=== PATIENT | female | born 1975 | race Caucasian/White ===

== ENCOUNTER 2017-05-11 10:08 | Emergency (ER) | payer MEDICAID ==
--- NOTE | 2017-05-11 10:30 | C.PDOC ---
History Of Present Illness SORE THROAT X 5 DAYS, RUNNY NOSE X 3. SORE THROAT WORSE IN MORNING. SUBJ FEVER. 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 SAW PMD FOR SAME, NO IMPROVE W TAMIFLU AND PHENERGAN COUGH. NO OTHER ASSOC SX EXAM NONTOXIC HEENT +CLEAR RHINORRHEA; PHARYNX CLEAR, NO ERYTHEMA OR EXUDATE OR SWELLING; UVULA MIDLINE; NO STRIDOR NECK SUPPLE LUNGS CTA B/L NO W/R/R REMAIDNER NEG MDM FINDINGS C/W VIRAL URI. PT REQUESTING ABX. ADVISED H&P ARE C/W VIRAL ILLNESS. SUPPORTIVE THERAPY Time Seen by Provider: 05/11/17 10:19 Chief Complaint (Nursing): Cough, Cold, Congestion History Per: Patient History/Exam Limitations: no limitations Onset/Duration Of Symptoms: Days Current Symptoms Are (Timing): Still Present Associated Symptoms: Fever, Sore Throat, Cough Severity: Moderate Past Medical History Reviewed: Historical Data, Nursing Documentation, Vital Signs Vital Signs: Last Vital Signs Temp 97.9 F 05/11/17 10:11 Pulse 86 05/11/17 10:11 Resp 18 05/11/17 10:38 BP 124/80 05/11/17 10:11 Pulse Ox 100 05/11/17 10:54 - Medical History PMH: Atrial Fibrillation, HTN, Hyperthyroidism (Recent LAB abnormality this admission), Chronic Kidney Disease Surgical History: No Surg Hx Denies: Pacemaker - [facility] Procedures CLOSURE SKIN & SUBCUTANEOUS NEC (02/17/13) TETANUS TOXOID ADMINIST (02/17/13) Family History: States: No Known Family Hx - Social History Hx Tobacco Use: No Hx Alcohol Use: No Hx Substance Use: No - Immunization History Hx Tetanus Toxoid Vaccination: No Hx Influenza Vaccination: No Hx Pneumococcal Vaccination: Yes Review Of Systems Except As Marked, All Systems Reviewed And Found Negative. Constitutional: Positive for: Fever (subjective fever). Negative for: Chills ENT: Positive for: Nose Discharge, Throat Pain. Negative for: Nose Congestion Respiratory: Positive for: Cough (non-productive cough) Physical Exam - Physical Exam Appears: Non-toxic Skin: Normal Color, Warm Head: Atraumatic, Normacephalic Eye(s): bilateral: Normal Inspection, PERRL Nose: Discharge (clear rhinorrhea) Throat: Normal, No Erythema, No Exudate, Other (no swelling, pharynx clear, uvula midline, no stridor) Neck: Supple Respiratory: Normal Breath Sounds, No Rales, No Rhonchi, No Wheezing Extremity: Normal ROM Neurological/Psych: Oriented x3, Normal Speech, Normal Cognition, Normal Motor, Normal Sensation ED Course And Treatment O2 Sat by Pulse Oximetry: 100 (RA) Pulse Ox Interpretation: Normal Medical Decision Making Medical Decision Making: Plan: --Benzonatate 200 mg PO --Dexamethasone 12 mg PO --Ibuprofen 600 mg PO FINDINGS C/W VIRAL URI. PT REQUESTING ABX. ADVISED H&P ARE C/W VIRAL ILLNESS. SUPPORTIVE THERAPY Disposition Counseled Patient/Family Regarding: Diagnosis, Need For Followup, Rx Given - Disposition Referrals: YOUR,PMD [Other] Disposition: HOME/ ROUTINE Disposition Time: 10:31 Condition: IMPROVED Prescriptions: Benzonatate [Tessalon Perles] 200 mg PO TID PRN #15 sgl PRN Reason: Cough Ibuprofen [Motrin] 600 mg PO Q6 #30 tab Instructions: Cold Symptoms (ED) Forms: [employer] (Greenlandic) - Clinical Impression Clinical Impression: Upper respiratory infection - Scribe Statement The provider has reviewed the documentation as recorded by the Duke Nicole Provider Attestation: All medical record entries made by the Scribe were at my direction and personally dictated by me. I have reviewed the chart and agree that the record accurately reflects my personal performance of the history, physical exam, medical decision making, and the department course for this patient. I have also personally directed, reviewed, and agree with the discharge instructions and disposition.
[2017-05-11 10:44] VITALS: BP 124/80; PULSE 86; RESP 18; TEMP 97.9; O2SAT 100
== END 2017-05-11 10:38 | disposition home or self-care (01) ==
LOC: C.ER 10:08
DX: J06.9 Acute upper respiratory infection, unspecified (principal)
CPT/HCPCS: 99284; J8540

== ENCOUNTER 2017-05-12 13:53 | Emergency (ER) | payer MEDICAID ==
[2017-05-12 14:00] VITALS: BP 118/72; PULSE 76; TEMP 98.1; O2SAT 100
--- NOTE | 2017-05-12 14:16 | C.PDOC ---
History Of Present Illness 41F c/o sore throat x10 days not improving. dry cough but she says this is because of her throat. subjective fever not measured. medication she was rx here yesterday she says are not helping. Time Seen by Provider: 05/12/17 14:00 Chief Complaint (Nursing): ENT Problem Past Medical History Vital Signs: Last Vital Signs Temp 98.1 F 05/12/17 13:59 Pulse 76 05/12/17 13:59 Resp 20 05/12/17 13:59 BP 118/72 05/12/17 13:59 Pulse Ox 100 05/12/17 13:59 - Medical History PMH: Atrial Fibrillation, HTN, Hyperthyroidism (Recent LAB abnormality this admission), Chronic Kidney Disease Surgical History: Denies: Pacemaker - [facility] Procedures CLOSURE SKIN & SUBCUTANEOUS NEC (02/17/13) TETANUS TOXOID ADMINIST (02/17/13) Family History: States: Other Other Family History: nc - Social History Hx Tobacco Use: No Hx Alcohol Use: No Hx Substance Use: No - Immunization History Hx Tetanus Toxoid Vaccination: No Hx Influenza Vaccination: No Hx Pneumococcal Vaccination: Yes Review Of Systems Constitutional: Positive for: Fever ENT: Positive for: Throat Pain. Negative for: Nose Congestion Cardiovascular: Negative for: Chest Pain Respiratory: Positive for: Cough. Negative for: Shortness of Breath Gastrointestinal: Negative for: Nausea, Vomiting, Abdominal Pain Neurological: Negative for: Weakness, Numbness, Headache Physical Exam - Physical Exam Appears: Well, Non-toxic, No Acute Distress Skin: Warm, Dry Eye(s): bilateral: PERRL Nose: No Epistaxis Oral Mucosa: Moist Lips: No Swelling, No Lesions Throat: No Erythema, No Exudate, No Drooling, No Mass, Other (normal phonation, uvula midline, handling secretions well) Neck: Normal ROM, Supple Cardiovascular: Rhythm Regular Respiratory: No Decreased Breath Sounds, No Accessory Muscle Use, No Rales, No Rhonchi, No Stridor, No Wheezing Neurological/Psych: Oriented x3, Other (no focla deficits) ED Course And Treatment O2 Sat by Pulse Oximetry: 100 Medical Decision Making Medical Decision Making: pt requesting abx. as this is her second visit in 2 days and she reports sx 10 days not improving, will rx azithromycin Disposition - Disposition Disposition: HOME/ ROUTINE Disposition Time: 14:14 Condition: GOOD Forms: [facility] (Cypriot) - Clinical Impression Clinical Impression: Upper respiratory infection
[2017-05-12 14:39] VITALS: RESP 16
== END 2017-05-12 14:38 | disposition home or self-care (01) ==
LOC: C.ER 13:53
DX: J06.9 Acute upper respiratory infection, unspecified (principal)

== ENCOUNTER 2017-08-20 19:26 | Emergency (ER) | payer MEDICAID ==
--- NOTE | 2017-08-20 21:52 | C.PDOC ---
History Of Present Illness 42 year old female presents to the ED c/o painful, burning, itchy rash to the upper abdomen. Patient denies new foods, detergents, fever, chills, nausea, vomit, diarrhea, recent travel, sick contacts. Time Seen by Provider: 08/20/17 21:32 Chief Complaint (Nursing): Abnormal Skin Integrity History Per: Patient History/Exam Limitations: no limitations Onset/Duration Of Symptoms: Days Current Symptoms Are (Timing): Still Present Location Of Injury: Left: Abdomen, Anterior: Abdomen Quality Of Symptoms: Painful, Itching Recent travel outside of the [place]: No Additional History Per: Patient Past Medical History Reviewed: Historical Data, Nursing Documentation, Vital Signs Vital Signs: Last Vital Signs Temp 98.4 F 08/20/17 21:53 Pulse 78 08/20/17 21:53 Resp 20 08/20/17 21:53 BP 118/74 08/20/17 21:53 Pulse Ox 98 08/20/17 21:53 - Medical History PMH: Atrial Fibrillation, HTN, Hyperthyroidism (Recent LAB abnormality this admission), Chronic Kidney Disease Surgical History: No Surg Hx Denies: Pacemaker - [facility] Procedures CLOSURE SKIN & SUBCUTANEOUS NEC (02/17/13) TETANUS TOXOID ADMINIST (02/17/13) Family History: States: Unknown Family Hx - Social History Hx Tobacco Use: No Hx Alcohol Use: No Hx Substance Use: No - Immunization History Hx Tetanus Toxoid Vaccination: No Hx Influenza Vaccination: Yes Hx Pneumococcal Vaccination: Yes Review Of Systems Constitutional: Negative for: Fever, Chills ENT: Negative for: Mouth Swelling, Throat Swelling Respiratory: Negative for: Cough, Shortness of Breath Gastrointestinal: Negative for: Abdominal Pain Skin: Positive for: Rash Neurological: Negative for: Weakness, Numbness Physical Exam - Physical Exam Appears: Non-toxic, No Acute Distress Skin: Normal Color, Warm, Dry, Rash (cluster of vesicles to the upper left abdomen. Some vesicles are already crusted) Head: Atraumatic, Normacephalic Eye(s): bilateral: Normal Inspection Ear(s): Bilateral: Normal Nose: No Discharge Oral Mucosa: Moist Tongue: No Swelling Lips: No Swelling Neck: Normal ROM, Supple Chest: Symmetrical Extremity: Normal ROM, No Tenderness, No Swelling Neurological/Psych: Oriented x3 Gait: Steady ED Course And Treatment Pulse Ox Interpretation: Normal Medical Decision Making Medical Decision Making: Impression: rash Plan: * Valtrex 1,000 mg PO Disposition - Disposition Disposition: HOME/ ROUTINE Disposition Time: 22:03 Condition: STABLE Additional Instructions: Follow up with PMD within 2-3 days. Return to ED if feel worse. Prescriptions: Calamine/Zinc Oxide [Calamine Lotion] 1 appl EXT BID #1 bottle Gabapentin [Neurontin] 100 mg PO TID #601 capsule valACYclovir [Valtrex] 1,000 mg PO Q8 #30 tab Instructions: Shingles (DC) Forms: [employer] (Cypriot) - Clinical Impression Clinical Impression: Herpes zoster - PA / GLOBAL CEO / Resident Statement MD/DO has reviewed & agrees with the documentation as recorded. - Scribe Statement The provider has reviewed the documentation as recorded by the Scribe Jose Alfredo Cerda All medical record entries made by the Scribfaviola were at my direction and personally dictated by me. I have reviewed the chart and agree that the record accurately reflects my personal performance of the history, physical exam, medical decision making, and the department course for this patient. I have also personally directed, reviewed, and agree with the discharge instructions and disposition.
[2017-08-20 21:53] VITALS: BP 118/74; PULSE 78; RESP 20; TEMP 98.4; O2SAT 98
== END 2017-08-20 23:05 | disposition home or self-care (01) ==
LOC: C.ER 19:26
DX: B02.9 Zoster without complications (principal)

== ENCOUNTER 2018-02-25 10:01 | Emergency (ER) | payer MEDICAID ==
[2018-02-25 10:12] VITALS: BP 128/84; PULSE 79; RESP 18; TEMP 97.9; O2SAT 99
[2018-02-25] MEDS ORDERED: PROPARACAINE/FLUORESCEIN SOD 100 DROP/5 ML BOTTLE OS STA (10:40)
[2018-02-25] MEDS ORDERED: Fluorescein 1 mg Ophthalmic Strip ONE (11:16)
--- NOTE | 2018-02-25 11:32 | C.PDOC ---
History Of Present Illness 42 year old female presents to the ED for evaluation of pain and redness to the left eye since this morning. Patient reports she woke up this morning with pain to her left eye. Denies using contact lenses, headache, vision change, trauma to the eye, vomiting, diarrhea, Time Seen by Provider: 02/25/18 10:22 Chief Complaint (Nursing): Eye Problem History Per: Patient History/Exam Limitations: no limitations Onset/Duration Of Symptoms: Hrs Current Symptoms Are (Timing): Still Present Past Medical History Reviewed: Historical Data, Nursing Documentation, Vital Signs Vital Signs: Last Vital Signs Temp 97.9 F 02/25/18 10:10 Pulse 79 02/25/18 10:10 Resp 18 02/25/18 10:10 BP 128/84 02/25/18 10:10 Pulse Ox 99 02/25/18 10:10 - Medical History PMH: Atrial Fibrillation, HTN, Hyperthyroidism (Recent LAB abnormality this admission), Chronic Kidney Disease Surgical History: Denies: Pacemaker - [facility] Procedures CLOSURE SKIN & SUBCUTANEOUS NEC (02/17/13) TETANUS TOXOID ADMINIST (02/17/13) Family History: States: Unknown Family Hx - Social History Hx Tobacco Use: No Hx Alcohol Use: No Hx Substance Use: No - Immunization History Hx Tetanus Toxoid Vaccination: No Hx Influenza Vaccination: Yes Hx Pneumococcal Vaccination: Yes Review Of Systems Except As Marked, All Systems Reviewed And Found Negative. Constitutional: Negative for: Other (use of contact lenses.) Eyes: Negative for: Vision Change, Other (trauma to the left eye. ) Gastrointestinal: Negative for: Vomiting, Diarrhea Neurological: Negative for: Headache Physical Exam - Physical Exam Appears: Well, No Acute Distress Skin: Normal Color, Warm, Dry Head: Atraumatic, Normacephalic Eye(s): bilateral: PERRL, EOMI, Other (left eye: conjunctiva injection ), right: Normal Inspection Neurological/Psych: Oriented x3, Normal Speech ED Course And Treatment O2 Sat by Pulse Oximetry: 99 (RA) Pulse Ox Interpretation: Normal Medical Decision Making Medical Decision Making: Plan: --Flucaine Eye Drops. Progress/Update: Patient stable for discharge home. Disposition - Disposition Referrals: Kristyn Rodgers MD [Staff Provider] - Disposition: HOME/ ROUTINE Disposition Time: 11:30 Condition: STABLE Additional Instructions: Follow up with the Eye doctor within 1-2 days without fail. Return if worsened. Prescriptions: Tobramycin 0.3% [Tobramycin 5 Ml] 1 drop OU TID #1 bottle Instructions: Corneal Abrasion (DC) Forms: [employer] (Chinese) - Clinical Impression Clinical Impression: Corneal abrasion - PA / FUNERAL ATTENDANT / Resident Statement MD/DO has reviewed & agrees with the documentation as recorded. - Scribe Statement The provider has reviewed the documentation as recorded by the Scribe (Vanita Lou) All medical record entries made by the Scribe were at my direction and personally dictated by me. I have reviewed the chart and agree that the record accurately reflects my personal performance of the history, physical exam, medical decision making, and the department course for this patient. I have also personally directed, reviewed, and agree with the discharge instructions and disposition.
== END 2018-02-25 11:37 | disposition home or self-care (01) ==
LOC: C.ER 10:01
DX: S05.02XA Injury of conjunctiva and corneal abrasion without foreign body, left eye, initial encounter (principal); X58.XXXA Exposure to other specified factors, initial encounter; Y92.9 Unspecified place or not applicable